=== PATIENT | male | born 2005 | race Two or more races ===

== ENCOUNTER → 2024-07-15 | Emergency (ER) | payer OTHER ==
[~2024-07-15] VITALS: Ht 157.5 cm; Wt 59.0 kg
[~2024-07-15] MED LIST: ACETAMINOPHEN 500 MG GEL..CAP PO ONE
== END | disposition left against medical advice (07) ==
LOC: ER 10:43
DX: Z53.21 Procedure and treatment not carried out due to patient leaving prior to being seen by health care provider (principal)